=== PATIENT | male | born 1970 | race Caucasian/White ===

== ENCOUNTER → 2016-03-09 | Day surgery (SDC) | payer BC ==
[~2016-03-09] MED LIST: Bupivacaine 0.5% SDV PF* 30 ML VIAL ONE
[2016-03-09 08:25] VITALS: BP 115/64
--- NOTE | 2016-03-10 04:29 | OP ---
DATE OF OPERATION: 03/09/16 - [facility] DATE OF : 68 SURGEON: Haim Morley MD GLASS DESIGNER: NATE Hurst ANESTHESIOLOGIST: None. ANESTHESIA: Digital block with 0.5% Marcaine. PRE-OP DIAGNOSIS: Right long finger dorsal proximal interphalangeal joint soft tissue mass. POST-OP DIAGNOSIS: Right long finger dorsal proximal interphalangeal joint soft tissue mass. OPERATIVE PROCEDURE: Excision of right long finger dorsal proximal interphalangeal joint soft tissue mass. INDICATIONS: Mr. Corbett is a 45-year-old male. A couple of months ago, he noted a lump on the dorsal aspect of the proximal interphalangeal joint of the right long finger. There is associated discomfort. We talked about risks and benefits and he elected to proceed with excision of the mass. ESTIMATED BLOOD LOSS: 2 mL. COMPLICATIONS: None. FINDINGS: A soft tissue nodule emanating from the dorsal aspect of the proximal interphalangeal joint between the central slip and the conjoined lateral bands. This is possibly a ganglion cyst. DESCRIPTION OF PROCEDURE: Mr. Corbett was seen in the preoperative holding area and the correct side and site were marked. Formal time-out was performed and I performed a digital block with 0.5% Marcaine. We then came back to the operating room and the arm was prepped and draped in the usual fashion and another formal time-out was performed. I then went ahead and exsanguinated the finger and placed a tourniquet using Tourni-Cot. A curvilinear incision was made over the groin around the dorsal aspect of the proximal interphalangeal joint on that right long finger. Full-thickness flap was raised right off the mass. This was noted to emanate between the central slip and the conjoined lateral band. It did have the appearance of quite possibly ganglion cyst. I then went ahead and performed a marginal excision freeing up the soft tissue right off the mass. This was done with a [place] blade. Ultimately, I excised the soft tissue mass together with a portion of the proximal interphalangeal joint capsule. This was handed off and sent to Pathology for further evaluation. I then used a bipolar cautery to cauterize the base where the mass had emanated from and to try to close the holes the remaining capsule. I then went ahead and had him make a full fist and open hand completely back up several times. The finger was functioning beautifully. I went ahead and irrigated the wound and then closed the skin with some 5-0 nylon suture. The Tourni-Cot was removed. The wound was dressed with Xeroform, 1 inch Jorge, and Coban. He was then taken to the recovery room in stable condition. [id number]/[facility] #: [id number] JULISSA
== END | disposition home or self-care (01) ==
LOC: OREAST 06:35
PROVIDERS: ATTEND Orthopaedic Surgery Hand Surgery
DX: R22.31 Localized swelling, mass and lump, right upper limb (principal)
CPT/HCPCS: 88305

== ENCOUNTER 2017-09-15 16:19 | Emergency (ER) | payer BC ==
[2017-09-15 16:27] VITALS: BP 121/84
--- NOTE | 2017-09-15 16:34 | UC ---
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 His last tetanus was 4 years ago. - History Of Current Complaint Chief Complaint: UCLaceration Stated Complaint: RIGHT FOOT INJURY Time Seen by Provider: 09/15/17 16:34 Hx Obtained From: Patient Laceration Location: Foot Mechanism Of Injury: Sharp Trauma Severity: Mild Pain Intensity: 1 Pain Scale Used: 0-10 Numeric - Allergies/Home Medications Allergies/Adverse Reactions: Allergies Allergy/AdvReac Type Severity Reaction Status Date / Time contrast dye Allergy Intermediate Rash Uncoded 09/15/17 16:27 PMH/Surg Hx/FS Hx/Imm Hx - Additional Past Medical History Additional PMH: None Previously Healthy: Yes - Surgical History Surgical History: Yes Surgery Procedure, Year, and Place: Right ring finger - Family History Known Family History: Positive: None - Social History Occupation: Employed Full-time Lives: With Family Alcohol Use: Occasionally Substance Use Type: None Smoking Status (MU): Never Smoked Tobacco - Immunization History Most Recent Tetanus Shot: 2013 Review of Systems Constitutional: Negative Skin: Other - Laceration right foot Respiratory: Negative Cardiovascular: Negative Neurovascular: Negative Neurological: Negative Psychological: Negative All Other Systems Reviewed And Are Negative: Yes Physical Exam - Summary Physical Exam Summary: GENERAL: NAD. WDWN. No pain distress. SKIN: Right foot: At the base of the web space between the 1st-2nd toe there is a 1.0cm laceration. Approx 2mm in depth. Mild active bleeding. Clean without FB. No tendon involvement. NECK: Supple. Nontender. No lymphadenopathy. CHEST: No accessory muscle use. Breathing comfortably and in no distress. CV: Pulses intact MSK: Right foot and all toes: FROM NEURO: Alert. CN II-XII grossly intact. PSYCH: Age appropriate behavior. Triage Information Reviewed: Yes Vital Signs: Initial Vital Signs Temp 97.2 F 09/15/17 16:23 Pulse 72 09/15/17 16:23 Resp 12 09/15/17 16:23 BP 121/84 09/15/17 16:23 Pulse Ox 99 09/15/17 16:23 Vital Signs Reviewed: Yes Laceration Repair - Laceration Repair 1 Description: Linear Laceration Size After Repair: Length (cm) - 1.0 Modified For Repair: No Anesthesia Used: 2.0% Lido Cleansing Completed Via Routine Prep: Yes Closure Material: Sutures Closure Method: Single Layer Suture Of: Skin Suture Type: Nylon Laceration Course/Dx - Course/Dx Course Of Treatment: A time out was performed, witnessed, and signed. The area was cleansed with sterile saline. 1mL of 2% lidocaine without epi was administered and good anesthetization was achieved. In the usual sterile fashion , three 6-0 nylon interrupted sutures were placed. The wound was bandaged with telfa . Pt tolerated procedure well. - Differential Dx - Laceration/Wound Provider Diagnoses: Laceration right foot Discharge - Sign-Out/Discharge Documenting (check all that apply): Patient Departure - Discharge Plan Condition: Stable Disposition: HOME Patient Education Materials: Care For Your Stitches (DC), Laceration (DC) Referrals: Astrid Cronin DO [Primary Care Provider] - Additional Instructions: 1) Please keep the area bandaged, clean, dry, and intact for the next 24- 48hours. 2) If you develop a fever, colored or thick discharge, increased pain or swelling - please call your PCP or go to the ED. 3) Please return in 10 days to have your THREE sutures removed. - Billing Disposition and Condition Condition: STABLE Disposition: Home
[2017-09-15] MEDS ORDERED: Lidocaine 2% PF * 5 ML VIAL INJ ONE (16:39)
== END 2017-09-15 17:10 | disposition home or self-care (01) ==
LOC: UCEAST 16:19
DX: S91.311A Laceration without foreign body, right foot, initial encounter (principal); W26.8XXA Contact with other sharp object(s), not elsewhere classified, initial encounter; Y93.E6 Activity, residential relocation; Y92.9 Unspecified place or not applicable; Z91.041 Radiographic dye allergy status
CPT/HCPCS: 12001; 99211; G0463